=== PATIENT | female | born 1985 | race Two or more races ===

== ENCOUNTER 2018-03-04 14:06 | Emergency (ER) | payer OTHER ==
[2018-03-04 14:13] VITALS: BP 112/80
--- NOTE | 2018-03-04 15:14 | ED Physician Documentation ---
PD HPI SKIN - Stated complaint Stated Complaint: BILAT EYE SWELLING - Chief complaint Chief Complaint: Wound - History obtained from History obtained from: Patient - History of Present Illness Timing - onset: How many days ago (she has eczema on face and around eyes and had redness around that recently, Dx with cellulitis, and Rx with Keflex. She says improved and is done abx. Having itching and swelling of skin around eyes. No surrounding redness now. Having some weeping of skin at area of swelling under right eyelid.) Timing - duration: Days Timing - details: Gradual onset, Still present Location: Face (chin, upper lip and bilateral periorbital. No eye pain itself.) Quality / character: Itchy, Burning, Discolored (red), Swelling Associated symptoms: No: Fever, Joint pain Contributing factors: Exposed to medication (was on oral abx and steroids but was better and is worse swelling now finished it.) Similar symptoms before: Diagnosis (eczema - has talked with her Derm office and they are calling Rx for another topical med. But pain and swelling worse today so here to ER for evaluation.) Review of Systems Constitutional: denies: Fever, Chills Eyes: denies: Loss of vision, Decreased vision, Photophobia PD PAST MEDICAL HISTORY - Past Medical History Past Medical History: No Cardiovascular: None Respiratory: None Neuro: None Endocrine/Autoimmune: None GI: None MATHEMATICS DEPARTMENT CHAIR: None : None HEENT: None Psych: None Musculoskeletal: Scoliosis Derm: Eczema - Past Surgical History Past Surgical History: No - Present Medications Home Medications: Ambulatory Orders Medication Instructions Recorded Confirmed cephALEXin [Keflex] 500 mg PO Q6H 10 Days capsule 11/01/13 Betamethasone Valerate 1 applic TP BID #15 cream..g. 03/04/18 Cephalexin [Keflex] 500 mg PO Q6H #24 capsule 03/04/18 Cetirizine [ZyrTEC] 10 mg PO DAILY #15 tablet 03/04/18 Dexamethasone [Decadron] 4 mg PO DAILY #7 tablet 03/04/18 Mupirocin 1 applic TP TID #15 g 03/04/18 - Allergies Allergies/Adverse Reactions: Allergies Allergy/AdvReac Type Severity Reaction Status Date / Time No Known Drug Allergies Allergy Verified 11/01/13 19:00 - Social History Does the pt smoke?: No Smoking Status: Never smoker Does the pt drink ETOH?: Yes Does the pt have substance abuse?: No - Immunizations Immunizations are current?: Yes - POLST Patient has POLST: No PD ED PE NORMAL - Vitals Vital signs reviewed: Yes - General General: Alert and oriented X 3, No acute distress, Well developed/nourished - HEENT HEENT: PERRL, EOMI, Other (periorbital both sides and also chin and upper lip with thickened skin, swelling, and mild redness. Red does not extend past areas of skin inflammation. No pain with eye movement. Clear mild weeping without crusting on skin of right lower eyelid.) - Neck Neck: Supple, no meningeal sign, No adenopathy - Cardiac Cardiac: RRR, No murmur - Respiratory Respiratory: Clear bilaterally Results - Vitals Vitals: Oxygen O2 Source Room air PD MEDICAL DECISION MAKING - ED course Complexity details: considered differential, d/w patient Departure - Departure Disposition: 01 Home, Self Care Clinical Impression: Facial eczema Condition: Stable Record reviewed to determine appropriate education?: Yes Instructions: ED Dermatitis Atopic Eczema Follow-Up: Morgan Alvarez PA-C [Primary Care Provider] - Prescriptions: Betamethasone Valerate 1 applic TP BID #15 cream..g. Cephalexin [Keflex] 500 mg PO Q6H #24 capsule Cetirizine [ZyrTEC] 10 mg PO DAILY #15 tablet Dexamethasone [Decadron] 4 mg PO DAILY #7 tablet Mupirocin 1 applic TP TID #15 g Comments: I think it is mainly the eczema at this point with the weeping from the skin being because of the inflammation. Use Decadron steroid daily for the next week (comparable to prednisone). Use mupirocin topical antibiotic on the rash areas in particular the eyelids twice daily. If there is persistence of the rash or extended area, then you could add the antibiotics tomorrow but I do not think it is infected at this time. If this does improve over the next several days to week, you can continue steroid topically on the rash areas that do not completely go away. Cetirizine antihistamine daily for the next couple of weeks. Discharge Date/Time: 03/04/18 16:06
[2018-03-04] MEDS ORDERED: DEXAMETHASONE 10 MG/ML VIAL PO STA (15:54)
[2018-03-04] MEDS ORDERED: MUPIROCIN 2% OINT 1 GM TOP STA (15:54)
[2018-03-04] MEDS ORDERED: CETIRIZINE 10 MG TABLET PO STA (15:54)
[2018-03-04] MEDS ORDERED: CHERRY SYRUP 10 ML UDC PO ONE (16:00)
== END 2018-03-04 16:06 | disposition home or self-care (01) ==
LOC: ED 14:06
DX: L30.9 Dermatitis, unspecified (principal)
CPT/HCPCS: 99283; A9270